=== PATIENT | male | born 1965 | race Two or more races ===

== ENCOUNTER 2019-03-29 10:24 | Inpatient (IN) | payer OTHER ==
[~2019-03-29] VITALS: Ht 180.3 cm; Wt 73.9 kg
[2019-05-06] MEDS ORDERED: OXYC1TAB9 PO (12:21)
[2019-05-06] MEDS ORDERED: INTESTINEX680 M1 PO (12:22)
== END 2019-05-06 14:14 | disposition home or self-care (01) | DRG 330 ==
LOC: O/R 05-02 06:50 → SURH 05-02 06:50 → SURG 05-02 07:00 → SURH 05-02 13:52
PROVIDERS: ADMIT Surgery
PROC: 07TC4ZZ Resection of Pelvis Lymphatic, Percutaneous Endoscopic Approach (ICD-10-PCS; 2019-05-02)
PROC: 0DJD8ZZ Inspection of Lower Intestinal Tract, Via Natural or Artificial Opening Endoscopic (ICD-10-PCS; 2019-05-02)
PROC: 0DTN4ZZ Resection of Sigmoid Colon, Percutaneous Endoscopic Approach (ICD-10-PCS; principal; 2019-05-02 07:00)
PROC: 3E0H8GC Introduction of Other Therapeutic Substance into Lower GI, Via Natural or Artificial Opening Endoscopic (ICD-10-PCS; 2019-05-03)
DX: C19 Malignant neoplasm of rectosigmoid junction (principal); K91.840 Postprocedural hemorrhage of a digestive system organ or structure following a digestive system procedure; D62 Acute posthemorrhagic anemia; K63.89 Other specified diseases of intestine; R59.0 Localized enlarged lymph nodes